=== PATIENT | male | born 1960 | race Caucasian/White ===

== ENCOUNTER 2023-11-15 11:51 | Emergency (ER) | payer MEDICARE, SELFPAY ==
[2023-11-15] VITALS (19 sets, daily range): BP systolic 74–110; BP diastolic 46–63; PULSE 53–65; RESP 10–22; TEMP 36.6; O2SAT 92–99; BMI 28.1
--- NOTE | 2023-11-15 11:49 | ECG_ITS ---
APPROVED REPORT Exam: Resting ECG HR:54 bpm ECG Measurements Heart Rate 54 AXES IA 154 P 9 QRSd 95 QRS 15 QT 440 T -30 QTc 426 Conclusion SINUS BRADYCARDIA SEPTAL MYOCARDIAL INFARCTION , PROBABLY OLD [40+ ms Q WAVE IN V1/V2] MODERATE T-WAVE ABNORMALITY, CONSIDER INFERIOR ISCHEMIA [-0.1+ mV T-WAVE IN II/aVF] No acute STEMI Electronically signed by : MIGUEL ANGEL ARELLANO, 11/16/2023 06:08:16
--- NOTE | 2023-11-15 11:58 | CT_ITS ---
FINAL REPORT TECHNIQUE: Thin section axial CT with sagittal reconstruction without contrast CLINICAL HISTORY: fall passed out COMPARISON: None FINDINGS: No acute fracture is seen. Alignment is normal. There is a remote T1 spinous process fracture with callus formation. No obvious bony spinal canal stenosis is present. There is moderate diffuse degenerative disc disease with moderate left facet osteoarthropathy at the C4-5 level. IMPRESSION: No acute fracture of the cervical spine is present. Remote fracture of the T1 spinous process. Moderate degenerative change as described. Reviewed, Interpreted and Dictated by Suresh Feldman MD Transcribed by Ilsa Felipe Authenticated and [facility]
--- NOTE | 2023-11-15 11:58 | CT_ITS ---
FINAL REPORT TECHNIQUE: Noncontrast exam CLINICAL HISTORY: fall passed out COMPARISON: None FINDINGS: There is decreased attenuation in the periventricular white matter, likely changes of chronic ischemic microvascular disease. Ventricles are normal. There is no hemorrhage. No mass effect is seen. Bilateral maxillary and ethmoid sinusitis is present. Bone windows show no evidence of fracture. IMPRESSION: No acute findings Bilateral maxillary and ethmoid sinusitis. Reviewed, Interpreted and Dictated by Suresh Feldman MD Transcribed by Ilsa Felipe Authenticated and [facility]
--- NOTE | 2023-11-15 12:00 | PC.NURSE ---
pt to CT scan. c collar in place.
[2023-11-15 12:07] LABS: Basophils # 0.1 K/mm3 (0-0.2); Basophils % 0.6 % (0.1-2.0); Eosinophils # 0.2 K/mm3 (0.0-0.4); Eosinophils % 1.9 % (0.1-12.0); Hematocrit 32.4 % (42.0-52.0); Hemoglobin 10.4 g/dL (14.1-18.0); Lymphocytes # 1.3 K/mm3 (0.7-4.5); Lymphocytes % 13.9 % (10-50); Mean Corpuscular HGB Conc 32.2 g/dL (31.8-35.4); Mean Corpuscular Hemoglobin 29.5 pg (27.0-31.2); Mean Corpuscular Volume 91.4 fl (80-94); Monocytes # 0.8 K/mm3 (0.1-1.0); Neutrophils # 7.2 K/mm3 (1.8-7.8); Neutrophils % 75.5 % (37.0-80.0); Platelet Count 351 K/mm3 (142-424); Red Blood Count 3.54 M/mm3 (4.60-6.20); Red Cell Distribution Width 17.3 % (11.5-17.5); White Blood Count 9.5 K/mm3 (4.8-10.8)
[2023-11-15 12:10] LABS: Chloride 94 mmol/L (98-107); Potassium 3.1 mmoL/L (3.5-5.1); Sodium 132 mmol/L (136-145)
[2023-11-15 12:13] LABS: Alanine Aminotransferase 22 U/L (12-78); Albumin/Globulin Ratio 0.8 (1.1-1.8); Alkaline Phosphatase 125 U/L (38-126); Anion Gap 12.1 mEq/L (5-15); Aspartate Amino Transferase 22 U/L (17-59); Blood Urea Nitrogen 45 mg/dl (9-20); Carbon Dioxide 29 mmol/L (22.0-30.0); Creatinine Clearance Estimated 7 mL/min (50-200); Estimated Glomerular Filt Rate 4 ml/min (>60); GFR (African American) 5 ML/MIN (>60); Globulin 3.7 g/dL (1.3-3.2); Glucose 131 mg/dl (74-100); Total Protein,Serum 6.7 g/dl (6.3-8.2)
--- NOTE | 2023-11-15 12:15 | ED_ITS ---
Discharge Plan Disposition Patient Disposition: Xfer Short-Term Hosp Chief Complaint: Weakness Prescriptions Prescriptions: No Action nifedipine 30 mg tablet extended release 24hr 30 mg PO DAILY Patient Comments: TAKE 1 TABLET 1 TIME EACH DAY atorvastatin 80 mg tablet 80 mg PO DAILY carvedilol 25 mg tablet 25 mg PO BID Patient Comments: TAKE 1 TABLET 2 TIMES EACH DAY WITH FOOD famotidine 40 mg tablet 40 mg PO BID Patient Comments: TAKE 1 TABLET 2 TIMES EACH DAY valsartan 80 mg tablet 80 mg PO DAILY Patient Comments: TAKE 1 TABLET 1 TIME EACH DAY hydralazine 25 mg tablet 25 mg PO NEEDED PRN (Reason: Hypertension) omeprazole 40 mg capsule,delayed release(DR/EC) 40 mg PO DAILY amitriptyline 50 mg tablet 50 mg PO DAILY bumetanide 1 mg tablet 2 mg PO BID levothyroxine 112 mcg tablet 112 mcg PO DAILY amoxicillin-pot clavulanate 875-125 mg tablet 1 tab PO BID Patient Comments: TAKE 1 TABLET EVERY 12 HOURS FOR 7 DAYS olmesartan 20 mg tablet 20 mg PO DAILY Patient Comments: TAKE 1 TABLET 1 TIME EACH DAY Referrals Follow up/Referrals: Provider,Referral, MD [Primary Care Provider] - See instructions Clinical Impressions Clinical Impression: Concussion, Orthostatic syncope, Polypharmacy Discharge ED Provider: Tristin Herman General Adult HPI <Victor Manuel Devlin MD - Last Filed: 11/15/23 15:04> General Chief complaint: Weakness Stated complaint: Syncope Time Seen by Provider: 11/15/23 11:55 Mode of Arrival: Wheelchair Source of Information: Patient and Relative Limitations: Altered Mental Status Description of Symptoms (Recalled from ER Triage Doc. by RN): pt presents to ED after fall. Son states pt was getting out of the truck when he passed out hitting his head. pt has abrasion noted to left posterior head. pt reports headache. pt unable to describe events leading up to fall. pt states he did fall a couple days ago as well. pt confused at start of triage, pt alert at this time. History of Present Illness HPI narrative: Patient is a 63-year-old male with past medical history of insulin-dependent diabetes, peritoneal dialysis dependent, previous syncope who presents emergency department for evaluation of traumatic injury sustained after he passed out in the parking lot. Patient was here to get a CT scan on outpatient basis for unknown reasons when he stood up out of the vehicle and made it to steps before falling backward and knocking himself unconscious. This was witnessed by his son. Patient has passed out before multiple times while rising from a seated position. He has become intermittently confused since he struck his head and presents here for continued evaluation. Patient denies any other acute complaints other than the back of his head hurting. Related Data Home Medications Medication Instructions Recorded Confirmed amitriptyline 50 mg tablet 50 mg PO DAILY 11/15/23 11/15/23 amoxicillin 875 mg-potassium 1 tab PO BID 11/15/23 11/15/23 clavulanate 125 mg tablet atorvastatin 80 mg tablet 80 mg PO DAILY 11/15/23 11/15/23 bumetanide 1 mg tablet 2 mg PO BID 11/15/23 11/15/23 carvedilol 25 mg tablet 25 mg PO BID 11/15/23 11/15/23 famotidine 40 mg tablet 40 mg PO BID 11/15/23 11/15/23 hydralazine 25 mg tablet 25 mg PO NEEDED PRN Hypertension 11/15/23 11/15/23 levothyroxine 112 mcg tablet 112 mcg PO DAILY 11/15/23 11/15/23 nifedipine 30 mg tablet,extended 30 mg PO DAILY 11/15/23 11/15/23 release 24 hr olmesartan 20 mg tablet 20 mg PO DAILY 11/15/23 11/15/23 omeprazole 40 mg capsule,delayed 40 mg PO DAILY 11/15/23 11/15/23 release valsartan 80 mg tablet 80 mg PO DAILY 11/15/23 11/15/23 Allergies Allergy/AdvReac Type Severity Reaction Status Date / Time No Known Allergies Allergy Unverified 02/20/19 12:02 [facility] <Victor Manuel Devlin MD - Last Filed: 11/15/23 15:04> [facility] Disclaimer: The information contained in this section may have been updated after the patient was seen, as this information can be updated by other users. Medical History (Updated 11/15/23 @ 17:38 by Tristin Herman MD) Elevated troponin Hypothyroidism Hyperlipidemia Hypertension Coronary artery disease Orthopnea Cough Surgical History (Updated 11/15/23 @ 15:22 by Coco Bowden APRN) Hx of CABG Social History Smoking Status: Former smoker alcohol intake: never current occupational status: employed Travel in the last 8 weeks: None <Victor Manuel Devlin MD - Last Filed: 11/15/23 15:04> ROS Obtained: Yes Systems reviewed as appropriate & no additional complaints except as documented Physical Exam <Victor Manuel Devlin MD - Last Filed: 11/15/23 15:04> General General appearance: alert and in no apparent distress Head Head exam: normocephalic and other (Abrasion left superior occiput) Eye Eye exam: Present PERRL and EOMI ENT ENT exam: Present mucous membranes moist Neck Neck exam: Present normal inspection; Absent tenderness Chest Chest inspection: Present normal inspection and symmetric chest wall rise Respiratory Respiratory exam: Present normal lung sounds bilaterally; Absent respiratory distress Cardiovascular Cardiovascular exam: Present regular rate and normal rhythm Abdominal Exam Abdominal exam: Present soft and other (Dialysis catheter left lower quadrant); Absent tenderness Extremities Exam Extremities exam: Present normal inspection Neurological Exam Neurological exam: Present alert Psychiatric Psychiatric exam: Present normal affect Skin Skin exam: Present warm and dry Medical Decision Making <Victor Manuel Devlin MD - Last Filed: 11/15/23 15:04> Anand Inquiry Pt receiving controlled substance: No Vital Signs: 11/15/23 11:52 11/15/23 12:31 11/15/23 13:00 Temperature 97.8 F Temperature Source Oral Pulse Rate 60 61 Pulse Rate [Right Radial] 54 L Respiratory Rate 18 Blood Pressure 107/54 L 110/56 L Blood Pressure [Right Arm] 99/51 L Blood Pressure Mean [Right Arm] 67 Blood Pressure Source [Right Arm] Automatic Cuff Blood Pressure Position [Right Arm] Sitting 02 Sat by Pulse Oximetry 94 L 95 97 Oxygen Delivery Method Room Air Room Air Room Air 11/15/23 13:31 11/15/23 13:33 11/15/23 14:00 Temperature Temperature Source Pulse Rate 59 L 59 L 60 Pulse Rate [Right Radial] Respiratory Rate 10 L 21 Blood Pressure 74/46 L 106/63 L 109/60 L Blood Pressure [Right Arm] Blood Pressure Mean [Right Arm] Blood Pressure Source [Right Arm] Blood Pressure Position [Right Arm] 02 Sat by Pulse Oximetry 92 L 95 94 L Oxygen Delivery Method Room Air Room Air Room Air 11/15/23 14:30 11/15/23 15:00 11/15/23 15:30 Temperature Temperature Source Pulse Rate 59 L 59 L 57 L Pulse Rate [Right Radial] Respiratory Rate 20 14 19 Blood Pressure 107/58 L 104/58 L 97/49 L Blood Pressure [Right Arm] Blood Pressure Mean [Right Arm] Blood Pressure Source [Right Arm] Blood Pressure Position [Right Arm] 02 Sat by Pulse Oximetry 94 L 97 94 L Oxygen Delivery Method Room Air Room Air Room Air 11/15/23 16:00 Temperature Temperature Source Pulse Rate 54 L Pulse Rate [Right Radial] Respiratory Rate 11 L Blood Pressure 92/56 L Blood Pressure [Right Arm] Blood Pressure Mean [Right Arm] Blood Pressure Source [Right Arm] Blood Pressure Position [Right Arm] 02 Sat by Pulse Oximetry 99 Oxygen Delivery Method Room Air Lab Data Lab Results 11/15/23 11:55: WBC 9.5, RBC 3.54 L, Hgb 10.4 L, Hct 32.4 L, MCV 91.4, MCH 29.5, MCHC 32.2, RDW 17.3, Plt Count 351, MPV 8.0, Neut % (Auto) 75.5, Lymph % (Auto) 13.9, Charlton % (Auto) 8.0, Eos % (Auto) 1.9, Baso % (Auto) 0.6, Neut # (Auto) 7.2, Lymph # (Auto) 1.3, Charlton # (Auto) 0.8, Eos # (Auto) 0.2, Baso # (Auto) 0.1, S odium 132 L, Potassium 3.1 L, Chloride 94 L, Carbon Dioxide 29, Anion Gap 12.1, BUN 45 H, Creatinine 12.70 H, Estimated Creat Clear 7, Estimated GFR 4 L*, Est GFR ( Amer) 5 L*, Glucose 131 H, Calcium 8.0 L, Total Bilirubin 1.0, AST 22, ALT 22, Alkaline Phosphatase 125, Troponin I 0.06 H, Total Protein 6.7, A lbumin 3.0 L, Globulin 3.7 H, Albumin/Globulin Ratio 0.8 L 11/15/23 13:30: Troponin I 0.06 H 11/15/23 11:55 11/15/23 11:55 Orders (Tests/Meds): ED MEDICATIONS Generic Name Dose Route Start Last Admin Trade Name Freq PRN Reason Stop Dose Admin Sodium Chloride 10 ml 11/15/23 11:58 Sodium Chloride 0.9% 10ml Flush Syringe IV 12/15/23 11:57 NEEDED PRN Maintain IV Site Discontinued Medications Generic Name Dose Route Start Last Admin Trade Name Michele PRN Reason Stop Dose Admin Lactated Ringer's 1,000 mls @ 999 mls/hr 11/15/23 13:32 11/15/23 13:41 Lactated Ringer's 1000 Ml Bag IV 11/15/23 14:32 999 mls/hr .Q1H1M ONE Administration Tetanus/Reduced Diphtheria/Acell Pertussis 0.5 ml 11/15/23 12:45 11/15/23 13:23 Tet/Diphth/Pert-Adult 0.5ml Syringe IM 11/15/23 12:46 0.5 ml .ONCE ONE Administration ORDERS Category Date Time Status CT cervical spine wo con Stat Cat Scan 11/15/23 11:[address] head/brain wo con Stat Cat Scan 11/15/23 11:58 Completed Cardiology Consult [Consult to Cardiology] [CONS] Cons 11/15/23 14:09 Active Routine Basic Metabolic Panel AMLAB Lab 11/16/23 06:00 Ordered Complete Blood Count Auto Diff AMLAB Lab 11/16/23 06:00 Ordered Complete Blood Count Auto Diff Stat Lab 11/15/23 11:55 Completed Comprehensive Metabolic Panel Stat Lab 11/15/23 11:55 Completed Lipid Panel AMLAB Lab 11/16/23 06:00 Ordered Liver Panel AMLAB Lab 11/16/23 06:00 Ordered Troponin I Q3H Lab 11/15/23 13:30 Completed Troponin I Q3H Lab 11/15/23 18:00 Ordered Troponin I Stat Lab 11/15/23 11:55 Completed Urinalysis and Microscopic Stat Lab 11/15/23 11:58 Ordered CA echo doppler complete Stat Y 11/15/23 15:27 Completed ECG Data Tracing #1: Lives in theIndependently interpreted by me, rate is 54, rhythm is regular, axis is normal, no ST elevation in anatomical contiguous leads, Q waves in the anterior leads. QTc 426. Medical Decision Narrative: In summary patient is a 63-year-old male past medical history described above presents emergency department for evaluation of traumatic injury sustained in a fall. Patient is hemodynamically stable pale upon arrival, intermittently oriented. C-collar initiated. Noncontrasted CT scan of the head and cervical spine will immediately be obtained. No obvious trauma on secondary survey otherwise. Hematologic labs will be obtained as well as EKG. workup reviewed by me, hematologic labs are nonactionable, patient has mild electrolyte derangements in the setting of dialysis dependent peritoneal dialysis. Initial troponin 0.06 however patient is not having any chest pain and has a creatinine of 12.7 I suspect no true cardiac ischemia at this time. Serial troponins no significant delta. CT imaging of the head and cervical spine shows no acute pathology. Patient underwent ambulation trial at bedside and was unsuccessful due to significant orthostasis blood pressure dropped to 70/40. Patient will undergo volume repletion the case was discussed with cardiology and they will evaluate the patient. Formal cardiology recommendation pending at time of transfer of care to the oncoming physician, Dr. Herman. <Tristin Herman MD - Last Filed: 11/15/23 17:38> Vital Signs: 11/15/23 11:52 11/15/23 12:31 11/15/23 13:00 Temperature 97.8 F Temperature Source Oral Pulse Rate 60 61 Pulse Rate [Right Radial] 54 L Respiratory Rate 18 Blood Pressure 107/54 L 110/56 L Blood Pressure [Right Arm] 99/51 L Blood Pressure Mean [Right Arm] 67 Blood Pressure Source [Right Arm] Automatic Cuff Blood Pressure Position [Right Arm] Sitting 02 Sat by Pulse Oximetry 94 L 95 97 Oxygen Delivery Method Room Air Room Air Room Air 11/15/23 13:31 11/15/23 13:33 11/15/23 14:00 Temperature Temperature Source Pulse Rate 59 L 59 L 60 Pulse Rate [Right Radial] Respiratory Rate 10 L 21 Blood Pressure 74/46 L 106/63 L 109/60 L Blood Pressure [Right Arm] Blood Pressure Mean [Right Arm] Blood Pressure Source [Right Arm] Blood Pressure Position [Right Arm] 02 Sat by Pulse Oximetry 92 L 95 94 L Oxygen Delivery Method Room Air Room Air Room Air 11/15/23 14:30 11/15/23 15:00 11/15/23 15:30 Temperature Temperature Source Pulse Rate 59 L 59 L 57 L Pulse Rate [Right Radial] Respiratory Rate 20 14 19 Blood Pressure 107/58 L 104/58 L 97/49 L Blood Pressure [Right Arm] Blood Pressure Mean [Right Arm] Blood Pressure Source [Right Arm] Blood Pressure Position [Right Arm] 02 Sat by Pulse Oximetry 94 L 97 94 L Oxygen Delivery Method Room Air Room Air Room Air 11/15/23 16:00 Temperature Temperature Source Pulse Rate 54 L Pulse Rate [Right Radial] Respiratory Rate 11 L Blood Pressure 92/56 L Blood Pressure [Right Arm] Blood Pressure Mean [Right Arm] Blood Pressure Source [Right Arm] Blood Pressure Position [Right Arm] 02 Sat by Pulse Oximetry 99 Oxygen Delivery Method Room Air Lab Data Lab Results 11/15/23 11:55: WBC 9.5, RBC 3.54 L, Hgb 10.4 L, Hct 32.4 L, MCV 91.4, MCH 29.5, MCHC 32.2, RDW 17.3, Plt Count 351, MPV 8.0, Neut % (Auto) 75.5, Lymph % (Auto) 13.9, Charlton % (Auto) 8.0, Eos % (Auto) 1.9, Baso % (Auto) 0.6, Neut # (Auto) 7.2, Lymph # (Auto) 1.3, Charlton # (Auto) 0.8, Eos # (Auto) 0.2, Baso # (Auto) 0.1, S odium 132 L, Potassium 3.1 L, Chloride 94 L, Carbon Dioxide 29, Anion Gap 12.1, BUN 45 H, Creatinine 12.70 H, Estimated Creat Clear 7, Estimated GFR 4 L*, Est GFR ( Amer) 5 L*, Glucose 131 H, Calcium 8.0 L, Total Bilirubin 1.0, AST 22, ALT 22, Alkaline Phosphatase 125, Troponin I 0.06 H, Total Protein 6.7, A lbumin 3.0 L, Globulin 3.7 H, Albumin/Globulin Ratio 0.8 L 11/15/23 13:30: Troponin I 0.06 H Orders (Tests/Meds): ED MEDICATIONS Generic Name Dose Route Start Last Admin Trade Name Freq PRN Reason Stop Dose Admin Sodium Chloride 10 ml 11/15/23 11:58 Sodium Chloride 0.9% 10ml Flush Syringe IV 12/15/23 11:57 NEEDED PRN Maintain IV Site Discontinued Medications Generic Name Dose Route Start Last Admin Trade Name Freq PRN Reason Stop Dose Admin Lactated Ringer's 1,000 mls @ 999 mls/hr 11/15/23 13:32 11/15/23 13:41 Lactated Ringer's 1000 Ml Bag IV 11/15/23 14:32 999 mls/hr .Q1H1M ONE Administration Tetanus/Reduced Diphtheria/Acell Pertussis 0.5 ml 11/15/23 12:45 11/15/23 13:23 Tet/Diphth/Pert-Adult 0.5ml Syringe IM 11/15/23 12:46 0.5 ml .ONCE ONE Administration ORDERS Category Date Time Status CT cervical spine wo con Stat Cat Scan 11/15/23 11:[address] head/brain wo con Stat Cat Scan 11/15/23 11:58 Completed Cardiology Consult [Consult to Cardiology] [CONS] Cons 11/15/23 14:09 Active Routine Basic Metabolic Panel AMLAB Lab 11/16/23 06:00 Ordered Complete Blood Count Auto Diff AMLAB Lab 11/16/23 06:00 Ordered Complete Blood Count Auto Diff Stat Lab 11/15/23 11:55 Completed Comprehensive Metabolic Panel Stat Lab 11/15/23 11:55 Completed Lipid Panel AMLAB Lab 11/16/23 06:00 Ordered Liver Panel AMLAB Lab 11/16/23 06:00 Ordered Troponin I Q3H Lab 11/15/23 13:30 Completed Troponin I Q3H Lab 11/15/23 18:00 Ordered Troponin I Stat Lab 11/15/23 11:55 Completed Urinalysis and Microscopic Stat Lab 11/15/23 11:58 Ordered CA echo doppler complete Stat Y 11/15/23 15:27 Completed Medical Decision Narrative: In summary patient is a 63-year-old male past medical history described above presents emergency department for evaluation of traumatic injury sustained in a fall. Patient is hemodynamically stable pale upon arrival, intermittently oriented. C-collar initiated. Noncontrasted CT scan of the head and cervical spine will immediately be obtained. No obvious trauma on secondary survey otherwise. Hematologic labs will be obtained as well as EKG. workup reviewed by me, hematologic labs are nonactionable, patient has mild electrolyte derangements in the setting of dialysis dependent peritoneal dialysis. Initial troponin 0.06 however patient is not having any chest pain and has a creatinine of 12.7 I suspect no true cardiac ischemia at this time. Serial troponins no significant delta. CT imaging of the head and cervical spine shows no acute pathology. Patient underwent ambulation trial at bedside and was unsuccessful due to significant orthostasis blood pressure dropped to 70/40. Patient will undergo volume repletion the case was discussed with cardiology and they will evaluate the patient. Formal cardiology recommendation pending at time of transfer of care to the oncoming physician, Dr. Herman. Batsheva: I assumed primary responsibility for this patient after signout from previous physician. On my evaluation, patient remains asymptomatic, however with orthostatic testing, patient nearly syncopized. Conversation was had with patient, he is electing to bring his peritoneal dialysis stuff to the hospital and be admitted here for medical reconciliation. I talked with hospitalist, interactive discussion was had. Patient initially deemed appropriate, however after further discussion, hospitalist reasonably feels more comfortable should patient be admitted to a facility that has cardiology and nephrology. Patient states that his nephrology team is at [facility]. I contacted [facility], he was graciously excepted as transfer under Dr. Lizarraga. Prior to transfer, patient's pharmacy was contacted, he is on the following antihypertensive medications: Carvedilol 25 mg twice daily, hydralazine 25 mg as needed, nifedipine 30 mg daily, valsartan 80 mg daily. Critical Care <Victor Manuel Devlin MD - Last Filed: 11/15/23 15:04> Critical Care Time Critical Care Time: No
--- NOTE | 2023-11-15 12:23 | PC.NURSE ---
Dr. Devlin notified of pt's creatinine- 12.7.
[2023-11-15 12:25] LABS: Troponin I 0.06 ng/ml (0.00-0.034)
[2023-11-15] MEDS: TET/DIPHTH/PERT-ADULT 0.5ML SYRINGE 0.5 ML IM (13:23)
--- NOTE | 2023-11-15 13:35 | PC.NURSE ---
spoke with Dorothy in cardiology, who will send Coco Bowden to evaluate pt
[2023-11-15] MEDS: LACTATED RINGERS 1000ML 1,000 ML 999 ML IV (13:41)
--- NOTE | 2023-11-15 13:42 | PC.NURSE ---
I attempted to ambulate pt in room. He became hypotensive and had a syncopal episode. bp 74/46. Spoke with MD. cardiology consulted
[2023-11-15 14:08] LABS: Troponin I 0.06 ng/ml (0.00-0.034)
--- NOTE | 2023-11-15 14:32 | PC.NURSE ---
paged andrés Glover for cardiology to see the pt, no answer at this time. aware
--- NOTE | 2023-11-15 14:41 | PC.NURSE ---
Dr. Devlin s/w Coco Bowden APRN in Cardiology clinic
--- NOTE | 2023-11-15 15:16 | P.CONCA_ITS ---
History of Present Illness History of Present Illness Consult date: 11/15/23 Requesting physician: Victor Manuel Devlin Chief complaint: syncope History of present illness: This is a 63-year-old gentleman who presented to the emergency department after syncopal episode. He has a history of coronary artery disease status post CABG, hypertension, hyperlipidemia, type 2 diabetes, end-stage renal disease on peritoneal dialysis. The patient states that he was coming into the hospital to have a scan of his chest due to a persistent cough and feeling bad for the last 10 days. He states that when he stood up to get out of the vehicle he made a few steps and then started falling backwards and knocked himself unconscious. This was witnessed by his son. The patient reports that he has passed out a few times when he has gone from a sitting to a standing position. When nursing staff called his pharmacy to get a medication list they state that he passed out in the pharmacy yesterday. The patient has been having some intermittent confusion since he struck his head in the parking lot. He denies any chest pain or pressure. He denies any shortness of breath. He states that he has chronic lower extremity edema since he has been on dialysis. He states that he has had a cough for approximately 10 days that will not go away. He states that he is just not felt well and has been seeing his primary care provider. He states that he is also lost 10 pounds in the last 10 days because he has been unable to eat. He denies any fever, chills, nausea, vomiting, diarrhea. He states that he does have orthopnea associated with his cough and he has to lie on pillows. Of note he also reports that he had a recent change to his blood pressure medication. He does not know which medication it was or what the change was. [facility] Disclaimer: The information contained in this section may have been updated after the patient was seen, as this information can be updated by other users. Medical History (Updated 11/15/23 @ 15:27 by Coco Bowden APRN) Elevated troponin Hypothyroidism Hyperlipidemia Hypertension Coronary artery disease Orthopnea Cough Surgical History (Updated 11/15/23 @ 15:22 by Coco Bowden APRN) Hx of CABG Social History Smoking Status: Former smoker alcohol intake: never current occupational status: employed Travel in the last 8 weeks: None Review of Systems Review of Systems Review of systems:: pertinent systems reviewed and negative unless documented below Constitutional Constitutional: Reports system reviewed and no additional complaints, except as documented, Reports frequent falls and Reports lethargy Eyes Eyes: Reports system reviewed and no additional complaints, except as documented ENT Ears, Nose, Mouth, and Throat: Reports system reviewed and no additional complaints, except as documented *Cardiovascular Cardiovascular: Reports system reviewed and no additional complaints, except as documented, Denies chest pain, Denies dyspnea, Reports leg edema and Reports orthopnea *Respiratory Respiratory: Reports system reviewed and no additional complaints, except as documented, Reports cough and Denies dyspnea *Gastrointestinal Gastrointestinal: Reports system reviewed and no additional complaints, except as documented *Genitourinary Genitourinary: Reports system reviewed and no additional complaints, except as documented *Musculoskeletal Musculoskeletal: Reports system reviewed and no additional complaints, except as documented Integumentary/Breasts Skin/Breast: Reports system reviewed and no additional complaints, except as documented *Neurologic Neurologic: Reports system reviewed and no additional complaints, except as documented and Reports frequent falls Psychiatric Psychiatric: Reports system reviewed and no additional complaints, except as documented Endocrine Endocrine: Reports system reviewed and no additional complaints, except as documented Hematologic/Lymphatic Hematologic/Lymphatic: Reports system reviewed and no additional complaints, except as documented Allergic/Immunologic Allergic/Immunologic: Reports system reviewed and no additional complaints, except as documented Exam Data for Last 24 hours Vital signs and Labs for Last 24 Hours: Temp Pulse Resp BP Pulse Ox O2 Del Method 97.8 F 59 L 20 107/58 L 94 L Room Air 11/15/23 11:52 11/15/23 14:30 11/15/23 14:30 11/15/23 14:30 11/15/23 14:30 11/15/23 14:30 Laboratory Results - last 24 hr 11/15/23 11:55: WBC 9.5, RBC 3.54 L, Hgb 10.4 L, Hct 32.4 L, MCV 91.4, MCH 29.5, MCHC 32.2, RDW 17.3, Plt Count 351, MPV 8.0, Neut % (Auto) 75.5, Lymph % (Auto) 13.9, [place] % (Auto) 8.0, Eos % (Auto) 1.9, Baso % (Auto) 0.6, Neut # (Auto) 7.2, Lymph # (Auto) 1.3, [place] # (Auto) 0.8, Eos # (Auto) 0.2, Baso # (Auto) 0.1, Sodium 132 L, Potassium 3.1 L, Chloride 94 L, Carbon Dioxide 29, Anion Gap 12.1, BUN 45 H, Creatinine 12.70 H, Estimated Creat Clear 7, Estimated GFR 4 L*, Est GFR ( Amer) 5 L*, Glucose 131 H, Calcium 8.0 L, Total Bilirubin 1.0, AST 22, ALT 22, Alkaline Phosphatase 125, Troponin I 0.06 H, Total Protein 6.7, Albumin 3.0 L, Globulin 3.7 H, Albumin/Globulin Ratio 0.8 L 11/15/23 13:30: Troponin I 0.06 H I & O for Last 24 hours: Intake & Output 11/12/23 11/13/23 11/14/23 11/15/23 23:59 23:59 23:59 23:59 Weight 185 lb Narrative: EKG is sinus bradycardia with rate of 54 bpm. There is an old septal ID pattern and inferior T wave abnormalities. Constitutional Constitutional: no acute distress and average body habitus *Routine HEENT Exam Head: Present normocephalic and atraumatic ENT: Present mucous membranes moist *Routine Neck Exam Neck: Present supple, full ROM and normal carotid upstroke; Absent JVD, carotid bruit or lymphadenopathy *Routine Respiratory Exam Respiratory: Present CTA bilaterally, normal respiratory effort, able to speak in complete sentences and symmetric chest movement *Routine Cardiovascular Exam Cardiovascular: Present Normal S1, Normal S2 and bradycardia; Absent murmur or gallop *Routine Abdominal Exam Abdominal: Present soft and normoactive bowel sounds; Absent tenderness, distended or organomegaly *Routine Extremities Exam Extremities: Present full ROM, pulses intact and normal capillary refill; Absent cyanosis, clubbing or edema *Routine Skin Exam Skin: Present intact and warm; Absent erythema *Routine Neurological Exam Neurological: Present alert, oriented X3 and CN II-XII intact; Absent sensory deficit or motor deficit Routine Psychiatric Exam Psychiatric: Present normal affect Meds Home Medications and Allergies Home Medications Medication Instructions Recorded Confirmed Type amitriptyline 50 mg tablet 50 mg PO DAILY 11/15/23 11/15/23 History amoxicillin 875 mg-potassium 1 tab PO BID 11/15/23 11/15/23 History clavulanate 125 mg tablet atorvastatin 80 mg tablet 80 mg PO DAILY 11/15/23 11/15/23 History bumetanide 1 mg tablet 2 mg PO BID 11/15/23 11/15/23 History carvedilol 25 mg tablet 25 mg PO BID 11/15/23 11/15/23 History famotidine 40 mg tablet 40 mg PO BID 11/15/23 11/15/23 History hydralazine 25 mg tablet 25 mg PO NEEDED PRN Hypertension 11/15/23 11/15/23 History levothyroxine 112 mcg tablet 112 mcg PO DAILY 11/15/23 11/15/23 History nifedipine 30 mg tablet,extended 30 mg PO DAILY 11/15/23 11/15/23 History release 24 hr olmesartan 20 mg tablet 20 mg PO DAILY 11/15/23 11/15/23 History omeprazole 40 mg capsule,delayed 40 mg PO DAILY 11/15/23 11/15/23 History release valsartan 80 mg tablet 80 mg PO DAILY 11/15/23 11/15/23 History New Prescriptions to Start Prescriptions: Allergies Allergy/AdvReac Type Severity Reaction Status Date / Time No Known Allergies Allergy Unverified 02/20/19 12:02 Assessment and Plan *Assessment and plan (1) Elevated troponin: Status: Acute Category: Medical Code(s): R79.89 - Other specified abnormal findings of blood chemistry (2) Cough: Status: Acute Qualifiers: Cough type: acute Qualified Code(s): R05.1 - Acute cough Category: Medical Code(s): R05.9 - Cough, unspecified (3) Orthopnea: Status: Acute Category: Medical Code(s): R06.01 - Orthopnea (4) Orthostatic syncope: Status: Acute Category: Medical Code(s): I95.1 - Orthostatic hypotension (5) Coronary artery disease: Status: Acute Qualifiers: Associated angina: without angina Coronary Disease-Associated Artery/Lesion type: [place] artery [place] vs. transplanted heart: [place] heart Qualified Code(s): I25.10 - Atherosclerotic heart disease of [place] coronary artery without angina pectoris Category: Medical Code(s): I25.10 - Atherosclerotic heart disease of [place] coronary artery without angina pectoris (6) Hx of CABG: Status: Acute Category: Surgical Code(s): Z95.1 - Presence of aortocoronary bypass graft (7) Hypertension: Status: Acute Qualifiers: Hypertension type: primary hypertension Qualified Code(s): I10 - Essential (primary) hypertension Category: Medical Code(s): I10 - Essential (primary) hypertension (8) Hyperlipidemia: Status: Acute Qualifiers: Hyperlipidemia type: mixed hyperlipidemia Qualified Code(s): E78.2 - Mixed hyperlipidemia Category: Medical Code(s): E78.5 - Hyperlipidemia, unspecified (9) Hypothyroidism: Status: Acute Qualifiers: Hypothyroidism type: unspecified Qualified Code(s): E03.9 - Hypothyroidism, unspecified Category: Medical Code(s): E03.9 - Hypothyroidism, unspecified (10) Concussion: Status: Acute Qualifiers: Encounter type: initial encounter Loss of consciousness presence/ duration: with LOC of 30 min or less Qualified Code(s): S06.0X1A - Concussion with loss of consciousness of 30 minutes or less, initial encounter Category: Medical Code(s): S06.0XAA - Concussion with loss of consciousness status unknown, initial encounter Plan Plan: 1. The patient presented to the emergency department after a syncopal episode in the parking lot on his way to have a CT of his chest. The patient did hit his head and has a concussion following his syncopal episode. 2. Will obtain an echocardiogram to evaluate his LV function due to his syncope. 3. The patient reported that he had recent blood pressure medication changes and states that he has not really felt well since that time. This may be the cause of his syncope. We do need to get an accurate list of his medications because the patient is unsure of what all medications he is taking. He is going to have his son bring his medications to the hospital. For now we will hold all of his blood pressure medications since his blood pressure is dropping to the 70s over 30s when he stands up. 4. The patient does have a history of coronary artery disease with coronary artery bypass grafting in December 2022. He denies any chest pain or pressure. He does report not feeling well for the last 10 days. He does have an elevated troponin, but has remained 0.06 x 2. This is flat and no plans for left cardiac catheterization at this time unless his troponin elevates more. 5. His blood pressure is on the lower side and as mentioned above we will hold all of his blood pressure medications at this time. 6. His LDL goal is less than 55. He is on a statin. Will get a lipid panel in the morning. 7. The patient does have end-stage renal disease on peritoneal dialysis. 8. Will admit the patient for observation overnight due to his orthostatic syncope and further evaluation of his elevated troponin. We do recommend giving him small fluid boluses of 250 mL at a time if he remains orthostatic when he stands up. 9. Further recommendations will be made pending the patient's response to treatment. Thank you for the opportunity to help participate in the care of this patient. All recommendations and orders are per Dr. Canseco.
--- NOTE | 2023-11-15 15:27 | CA_ITS ---
APPROVED REPORT EXAM: Comprehensive 2D, Doppler, and color-flow Echocardiogram Special Education Associate: Mari Pryor RVT Ht: 5 ft 8 in Wt: 185lbs BSA: 1.98 BP: 107/58 mmHg Indications: SYNCOPE,ELEVATED TROP,CABG,CAD,DM,HTN,HLD,PERITONEAL DIALYSIS 2D Dimensions IVSd 1.01 cm M: 0.6-1.2 LVEF (Visual) 48.50 % PWd 1.33 cm M: 0.6 - 1.2 LA Volume 72.60 mL LVDd 2.56 cm M: 4.2 - 5.9 LA Volume Index 36.67 mL/m2 (M/F) 16-34 LVDs 1.97 cm M: 2.5 - 4.0 M-Mode Dimensions LA Diam 3.72 cm (1.9-4.0) LV Diastology E Decel Time 150 (160-240 msec) E/A Ratio 1.6 Aortic Valve MAXWELL Index 0.91 cm2/m2 AoV Peak Femi. 170.0 (50-130 cm/s) AO Peak GR. 11.60 mmHg AO Mean GR. 7.30 (<5 mmHg) AO VTI 35.4 (18-25 cm) MAXWELL (VTI) 1.85 (2.5-4.5 cm2) Mitral Valve MV E Max Femi. 89.0 (40-130 cm/s) MV A Velocity 55.0 (40-130 cm/s) E/A Ratio 1.62 MV PHT 44.0 ms Pulmonary Valve PV Peak Velocity 89.0 (50-150 cm/s) Tricuspid Valve TR P. Velocity 278.00 cm/s RAP Estimate 10.00 mmHg RVSP 40.90 mmHg Left Ventricle The left ventricle is normal size. The left ventricular systolic function is low normal. There is normal left ventricular wall thickness. There is borderline global hypokinesis present. The left ventricular diastolic function is normal. LVEF is 50%. Right Ventricle The right ventricle is mildly dilated. Right ventricle is mildly hypokinetic. Atria The left atrium size is normal. The right atrium size is normal. There is no Doppler evidence of interatrial shunt. Aortic Valve The aortic valve is mildly thickened. Trace aortic regurgitation. There is no aortic valvular stenosis. Mitral Valve The mitral valve leaflets are mildly thickened. No evidence of mitral valve stenosis. Trace mitral regurgitation. Tricuspid Valve The tricuspid valve leaflets are thin and pliable. Mild tricuspid regurgitation. RVSP is 30-35 mmHg. Pulmonic Valve The pulmonary valve is normal in structure. Trace pulmonic regurgitation. Great Vessels The aortic root is normal in size. The ascending aorta is not well-visualized. IVC is normal in size and collapses >50% with inspiration. Pericardium There is no pericardial effusion. Other Information Study Quality: Technically Difficult Conclusion Technically difficult study due to poor acoustic windows. Low normal LV systolic function (LVEF 50%). Mild RV dilation with mild reduction in RV function. Mild TR. RVSP 30-35 mmHg. Electronically signed by : Perla Canseco MD 11/19/2023 13:11:10
--- NOTE | 2023-11-15 17:20 | PC.NURSE ---
Called [facility] per Dr Herman to speak with Nephology about this pt. [facility] advised that they would contact the transfer doctor and call us back
--- NOTE | 2023-11-15 17:34 | PC.NURSE ---
[facility] called back to speak with Dr Herman and Dr Lizarraga has accepted
--- NOTE | 2023-11-15 17:41 | PC.NURSE ---
Called Radiology for a disc to take to [facility]
[2023-11-15 18:22] LABS: Troponin I 0.05 ng/ml (0.00-0.034)
== END 2023-11-15 19:50 | disposition short-term general hospital (02) ==
PROVIDERS: Emergency Medicine; Emergency Provider Emergency Medicine
DX: R79.89 Other specified abnormal findings of blood chemistry (principal); I95.1 Orthostatic hypotension; I25.10 Atherosclerotic heart disease of native coronary artery without angina pectoris; I11.9 Hypertensive heart disease without heart failure; E78.2 Mixed hyperlipidemia; E03.9 Hypothyroidism, unspecified; S06.0X0A Concussion without loss of consciousness, initial encounter; R00.1 Bradycardia, unspecified; E87.1 Hypo-osmolality and hyponatremia; E87.6 Hypokalemia; Z95.5 Presence of coronary angioplasty implant and graft; W18.30XA Fall on same level, unspecified, initial encounter; Z99.2 Dependence on renal dialysis; N18.9 Chronic kidney disease, unspecified; Z23 Encounter for immunization
CPT/HCPCS: 36415; 70450; 72125; 80053; 84484; 85025; 90471; 90715; 93005; 93306; 96361; 99285